=== PATIENT | male | born 1945 ===

== ENCOUNTER 2025-07-28 10:15 | Inpatient (IN) | payer OTHER ==
[~2025-07-28] VITALS: Ht 170.2 cm; Wt 75.7 kg
[2025-07-28 12:07] LABS: URINE APPEARANCE Clear; URINE BILIRRUBIN Negative (NEGATIVE); URINE BLOOD Negative; URINE COLOR Yellow; URINE GLUCOSE Negative (NEGATIVE); URINE KETONE Negative (NEGATIVE); URINE LEUKOCYTE Negative; URINE NITRATE Negative; URINE PROTEIN Negative (NEGATIVE); URINE UROBILINOGEN 0.2 E.U./dl
[2025-07-28 12:15] LABS: BASO % 0.3 % (0.1-1.2); EOS # 0.34 (0.04-0.54); EOS % 4.3 % (0.7-7.0); LYMPH # 1.82 (1.18-3.74); LYMPH % 22.9 % (19.3-53.1); MEAN PLATELET VOLUME 10.20 fl (9.4-12.4); MONO # 0.75 (0.24-0.82); MONO % 9.4 % (4.7-12.5); NEUT # 4.99 (1.56-6.13); NEUT % 62.8 % (34.0-71.1); RED CELL DISTRIBUTION WIDTH 12.8 % (11.6-14.4)
[2025-07-28 12:16] LABS: URINE BACTERIA 2.3 uL (0.0-1933); URINE CAST 0.00 uL (0.0-1.40); URINE EPITHELIAL CELLS 0.1 uL (0.0-38.8); URINE RBC 0.4 uL (0.0-20.8); URINE WBC 0.7 uL (0.0-23.2)
[2025-07-28 12:26] LABS: COVID-19 AG NEGATIVE (NEGATIVE)
[2025-07-28 12:36] LABS: INR 1.01
[2025-07-28 12:38] LABS: BUN CREA RATIO 18.0 (7.0-25.0); CREATININE SERUM 1.42 mg/dL (0.70-1.30); GFR 48.09; GLUCOSE FASTING 85.0 mg/dL (65-100); OSMOLALITY SERUM 287.0 MOSM/KG (275-295)
[2025-07-28 13:51] LABS: RH POSITIVE
[2025-07-28] MEDS ORDERED: TAMS0.4C PO (14:18)
[2025-07-28] MEDS ORDERED: AMLODIPINE-OLM1 EAC2 PO (14:18)
[2025-07-28] MEDS ORDERED: AVAPRO300 MG PO (14:18)
[2025-07-28] MEDS ORDERED: TOLTERODINE TART2 M1 PO (14:19)
[2025-07-28] MEDS ORDERED: DAFLONEX-XL 11300 MG (14:19)
[2025-07-28 14:25] VITALS: BP 150/83
[2025-08-04] MEDS ORDERED: ENOXAPARIN SODIUM 40 MG/0.4 ML SYRINGE SUBCUTANEO ONE (09:00)
[2025-08-04] MEDS ORDERED: CEFAZOLIN SODIUM 1,000 MG in 0.9 % SODIUM CHLORIDE 50 ML IV ONE (09:00)
[2025-08-04] MEDS ORDERED: BUPIVACAINE HCL 30 ML VIAL IJ ONE (09:00)
[2025-08-04] MEDS ORDERED: SURGIFLO APPLICATOR 1 EACH APPL TOP ONE (09:00)
[2025-08-04] MEDS ORDERED: HEMOSTATIC MATRIX 1 KIT KIT TOP ONE (09:00)
[2025-08-04] MEDS ORDERED: RINGERS SOLUTION,LACTATED 1,000 ML IV SCH (10:45)
[2025-08-04] MEDS ORDERED: ONDANSETRON HCL 2 MG/ML VIAL IV PRN (10:45)
[2025-08-04] MEDS ORDERED: MORPHINE SULFATE 4 MG/ML CARTRIDGE IV PRN (10:45)
[2025-08-04] MEDS ORDERED: METOPROLOL TARTRATE 5MG/5ML AMPUL IV PRN (10:45)
[2025-08-04] MEDS ORDERED: hydrALAZINE HCL 20 MG VIAL IV PRN (13:30)
[2025-08-04 16:00] VITALS: BP 162/87; O2SAT 96
[2025-08-04] MEDS ORDERED: GABAPENTIN 300 MG CAPSULE PO SCH (17:00)
[2025-08-04] MEDS ORDERED: CEFAZOLIN SODIUM 1,000 MG VIAL IV SCH (21:00)
[2025-08-04] MEDS ORDERED: FAMOTIDINE/PF 20 MG/2 ML VIAL IV SCH (21:00)
[2025-08-05 02:19] VITALS: BP 141/74; O2SAT 8
[2025-08-05 06:52] LABS: BASO % 0.2 % (0.1-1.2); EOS # 0.06 (0.04-0.54); EOS % 0.6 % (0.7-7.0); LYMPH # 1.52 (1.18-3.74); LYMPH % 16.2 % (19.3-53.1); MEAN PLATELET VOLUME 10.20 fl (9.4-12.4); MONO # 1.07 (0.24-0.82); MONO % 11.4 % (4.7-12.5); NEUT # 6.69 (1.56-6.13); NEUT % 71.4 % (34.0-71.1); RED CELL DISTRIBUTION WIDTH 12.3 % (11.6-14.4)
[2025-08-05 07:33] LABS: BUN CREA RATIO 14.0 (7.0-25.0); CREATININE SERUM 1.33 mg/dL (0.70-1.30); GFR 51.87; GLUCOSE FASTING 86.0 mg/dL (65-100); OSMOLALITY SERUM 288.0 MOSM/KG (275-295)
[2025-08-05 08:14] VITALS: BP 135/71; O2SAT 96
[2025-08-05] MEDS ORDERED: ENOXAPARIN SODIUM 40 MG/0.4 ML SYRINGE SUBCUTANEO SCH (09:00)
[2025-08-05] MEDS ORDERED: IRBESARTAN 300 MG TABLET PO SCH (09:00)
== END 2025-08-05 13:00 | disposition home or self-care (01) | DRG 718 ==
LOC: SURH 08-04 06:00 → O/R 08-04 06:00 → SURH 08-04 07:00
PROVIDERS: ADMIT Urology; ATTEND Urology
PROC: 8E0W4CZ Robotic Assisted Procedure of Trunk Region, Percutaneous Endoscopic Approach (ICD-10-PCS; 2025-08-04)
PROC: 0VB04ZZ Excision of Prostate, Percutaneous Endoscopic Approach (ICD-10-PCS; principal; 2025-08-04 07:00)
DX: N40.1 Benign prostatic hyperplasia with lower urinary tract symptoms (principal); R33.9 Retention of urine, unspecified
CPT/HCPCS: 55867; S2900